=== PATIENT | male | born 1985 | race African-American/Black ===

== ENCOUNTER 2019-02-20 22:39 | Emergency (ER) | payer MEDICAID ==
[~2019-02-20] VITALS: Ht 193 cm; Wt 108.9 kg
[2019-02-20 23:42] LABS: *BILIRUBIN,URIN NEGATIVE (NEGATIVE); *CLARITY,URINE CLEAR (CLEAR); *COLOR,URINE YELLOW (YELLOW); *KETONES,URINE TRACE (NEGATIVE); LEUKOCYTE ESTERASE ,URINE NEGATIVE (NEGATIVE); NITRITE, URINE NEGATIVE (NEGATIVE); UGLUCOSE NEGATIVE (NEGATIVE)
[2019-02-20 23:43] LABS: *BLOOD, URINE TRACE (NEGATIVE)
--- NOTE | 2019-02-20 23:50 | NUR ---
PATIENT WAS MSE BY DR HAMILTON IN ROOM 04A.
[2019-02-20 23:51] LABS: BACTERIA,URINE NONE SEEN /HPF (NONE SEEN); SQUAMOUS EPITHELIAL CELL,UR FEW /HPF (NONE SEEN); WBC,URINE NONE SEEN /HPF (0-3)
[2019-02-21] MEDS ORDERED: CEFTRIAXONE 500 MG VIAL IM ONE
[2019-02-21] MEDS ORDERED: CEFTRIAXONE 500 MG VIAL ONE (00:07)
[2019-02-21 00:17] VITALS: BP 109/73
--- NOTE | 2019-02-21 00:23 | NUR ---
Patient discharged to home in stable conditon. Written and verbal after care instructions given. Patient verbalizes understanding of instructions.
== END 2019-02-21 00:23 | disposition home or self-care (01) ==
LOC: ER 22:39
DX: A64 Unspecified sexually transmitted disease (principal)
CPT/HCPCS: 81000; 81001; 96372; 99283; J0696; A4663

== ENCOUNTER 2019-06-18 10:59 | Emergency (ER) | payer SELFPAY ==
[~2019-06-18] VITALS: Ht 193 cm; Wt 108.9 kg
[2019-06-18] MEDS ORDERED: CEFTRIAXONE 500 MG VIAL IM ONE (11:15)
[2019-06-18] MEDS ORDERED: AZITHROMYCIN 250 MG TABLET PO ONE (11:15)
[2019-06-18] MEDS ORDERED: CEFTRIAXONE 500 MG VIAL ONE (11:27)
[2019-06-18] MEDS ORDERED: AZITHROMYCIN 250 MG TABLET ONE (11:27)
[2019-06-18] MEDS ORDERED: LIDOCAINE HCL 1% 20 ML VIAL ONE (11:28)
[2019-06-18 11:36] VITALS: BP 118/74
--- NOTE | 2019-06-18 11:36 | NUR ---
Patient discharged to home in stable conditon. Written and verbal after care instructions given. Patient verbalizes understanding of instructions.
== END 2019-06-18 11:37 | disposition home or self-care (01) ==
LOC: ER 11:01
DX: A64 Unspecified sexually transmitted disease (principal)
CPT/HCPCS: 96372; 99283; J0696; J3490; A4663; Q0144